=== PATIENT | male | born 1970 | race Caucasian/White ===

== ENCOUNTER 2020-05-29 08:33 | Outpatient (REF) | payer BC, SELFPAY ==
[2020-05-29 08:49] LABS: COVID-19 Test Negative (Negative)
== END 2020-05-29 08:34 | disposition home or self-care (01) ==
LOC: HO.LAB 08:33
PROVIDERS: Visit Provider Internal Medicine
DX: Z20.828 Contact with and (suspected) exposure to other viral communicable diseases (principal)
CPT/HCPCS: 36415; 87635; C9803

== ENCOUNTER 2020-06-03 06:23 | Outpatient (REF) | payer BC, SELFPAY ==
[2020-06-03 07:02] LABS: COVID-19 Test Negative (Negative)
== END 2020-06-03 06:24 | disposition home or self-care (01) ==
LOC: HO.LAB 06:23
PROVIDERS: Visit Provider Internal Medicine
DX: Z20.822 Contact with and (suspected) exposure to COVID-19 (principal)
CPT/HCPCS: 36415; 87635; C9803